=== PATIENT | female | born 1980 | race African-American/Black ===

== ENCOUNTER 2017-10-20 18:23 | Emergency (ER) | payer MEDICARE, MEDICAID ==
[~2017-10-20] VITALS: Ht 170.2 cm; Wt 70.0 kg
[~2017-10-20 18:23] MED LIST: AMLO10TA4; CARV12.545; INSULIN; SEVE800T8; ZOLP10TA2
[2017-10-20] MEDS ORDERED: DIPHENHYDRAMINE 50MG/ML VIAL IM STA (20:16)
[2017-10-20] MEDS ORDERED: MORPHINE SULFATE 10 MG/ML CPJ IM ONE (20:30)
[2017-10-20] MEDS ORDERED: ONDANSETRON HCL 4MG/2ML VIAL IM ONE (20:30)
[2017-10-20] MEDS ORDERED: HYDROMORPHONE HCL/PF 2MG/ML CPJ IV ONE (21:45)
[2017-10-20 22:29] LABS: BASOPHILS % 0.4 % (0.0-2.0); EOSINOPHILS % 1.1 % (0.0-5.0); HEMATOCRIT. 32.7 % (36.0-48.0); HEMOGLOBIN. 10.2 g/dL (12.0-16.0); LYMPHOCYTES % 36.5 % (20.0-50.0); MEAN CORPUSCULAR HEMOGLOBIN 28.6 pg (28.0-32.0); MEAN CORPUSCULAR VOLUME 91.9 fL (81.0-99.0); MEAN PLATELET VOLUME 8.5 fl (7.4-10.4); MONOCYTES % 12.1 % (2.0-8.0); NEUTROPHILS % 49.9 % (40.0-76.0); PLATELET 158 x1000/uL (130-400); RED BLOOD CELL COUNT 3.56 mill/uL (4.2-5.4); RED CELL DISTRIBUTION WIDTH 17.9 % (11.6-14.6)
[2017-10-20 23:42] LABS: CHLORIDE 91 mEq/L (98-107)
[2017-10-20] MEDS ORDERED: SODIUM BICARBONATE 8.4% 1 MEQ/ML 50ML SYR IV ONE (23:45)
[2017-10-20] MEDS ORDERED: SODIUM POLYSTYRENE SULFONATE 15 G/60 ML BOT PO ONE (23:45)
[2017-10-20] MEDS ORDERED: ALBUTEROL (0.083%) 2.5MG/3ML NEB HHN ONE (23:45)
[2017-10-20 23:46] LABS: PROTHROMBIN TIME 10.2 sec (9.4-11.6)
[2017-10-20 23:47] LABS: HCG SCREEN NEGATIVE
[2017-10-20] MEDS ORDERED: ALBUTEROL (0.5%) 2.5MG/0.5ML NEB HHN ONE (23:56)
[2017-10-21] MEDS ORDERED: HYDROMORPHONE HCL/PF 2MG/ML CPJ IV ONE
[2017-10-21] MEDS ORDERED: INSULIN REGULAR (HUMULIN R) 300UNITS/3ML SUBCUT ONE
[2017-10-21] MEDS ORDERED: INSULIN REGULAR (HUMULIN R) UD 100 UNITS/ML SYR IV ONE
[2017-10-21] MEDS ORDERED: INSULIN REGULAR (HUMULIN R) UD 100 UNITS/ML SYR SUBCUT ONE (01:30)
[2017-10-21] MEDS ORDERED: INSULIN REGULAR (HUMULIN R) 300UNITS/3ML IV NR (02:00)
[2017-10-21 02:31] VITALS: BP 119/89
== END 2017-10-21 02:35 | disposition short-term general hospital (02) ==
LOC: ER 20:06
DX: S82.401A Unspecified fracture of shaft of right fibula, initial encounter for closed fracture (principal); E11.22 Type 2 diabetes mellitus with diabetic chronic kidney disease; I12.0 Hypertensive chronic kidney disease with stage 5 chronic kidney disease or end stage renal disease; N18.6 End stage renal disease; E11.65 Type 2 diabetes mellitus with hyperglycemia; E87.5 Hyperkalemia; Z99.2 Dependence on renal dialysis; W01.0XXA Fall on same level from slipping, tripping and stumbling without subsequent striking against object, initial encounter; Y93.89 Activity, other specified; Y92.89 Other specified places as the place of occurrence of the external cause; Y99.8 Other external cause status
CPT/HCPCS: 29505; 36415; 71045; 73590; 80053; 82962; 84703; 85025; 85610; 85730; 86850; 86900; 86901; 93005; 94640; 96372; 96374; 96375; 96376; 99285; J1170; J1200; J1815; J2270; J2405; J7611; J3490